=== PATIENT | female | born 1980 ===

== ENCOUNTER 2022-06-13 17:34 | Emergency (ER) | payer OTHER ==
[~2022-06-13] VITALS: Ht 162.6 cm; Wt 85.3 kg
[2022-06-13] MEDS ORDERED: DECONGESTANT (20:11)
[2022-06-13] MEDS ORDERED: AMOX250 (20:11)
[2022-06-13] MEDS ORDERED: TURMERIC ROOT5000 GM (20:23)
[2022-06-13] MEDS ORDERED: Percocet 5-3251 EACH PO (22:42)
== END 2022-06-13 23:36 | disposition home or self-care (01) ==
LOC: ER 17:34
DX: S52.571A Other intraarticular fracture of lower end of right radius, initial encounter for closed fracture (principal); W03.XXXA Other fall on same level due to collision with another person, initial encounter; Y93.21 Activity, ice skating; Z79.899 Other long term (current) drug therapy
CPT/HCPCS: 73090; A9270; J1885

== ENCOUNTER 2022-06-23 08:30 | Day surgery (SDC) | payer OTHER ==
[~2022-06-23] VITALS: Ht 162.6 cm; Wt 85.8 kg
[~2022-06-23 08:30] MED LIST: AMOX250; DECONGESTANT; Percocet 5-3251 EACH PO; TURMERIC ROOT5000 GM
--- NOTE | 2022-06-23 09:29 | NUR ---
06/23/22 0929 GEORGES HODGSON BLOOD WAS SENT TO THE LAB FOR PG TEST SG 1.005
--- NOTE | 2022-06-23 10:31 | NUR ---
06/23/22 1031 CLIF EPSTEIN 0.1MG OF EPI ADDED TO 20MLS OF ROPIVACAINE 0.5% TO CREATE A LOCAL SOLUTION OF ROPIVACAINE 0.5% WITH EPI 1:200,000. 10MLS OF LOCAL DRAWN UP ON STERILE FIELD FOR USE DURING CASE.
--- NOTE | 2022-06-23 13:19 | NUR ---
06/23/22 1319 GEORGES HODGSON DESCRIBES HER PAIN STRONG DISCOMFORT. DOES NOT LIKE THE NUMBNESS PAIN. PERCOCET 5/325MG GIVEN. BP 118/78, 77, 98, 16. EATING AND DRINKING W/O DIFFICULTY.
== END 2022-06-23 13:50 | disposition home or self-care (01) ==
LOC: ORSCSDS 08:30
PROVIDERS: Orthopaedic Surgery
PROC: 0PSH04Z Reposition Right Radius with Internal Fixation Device, Open Approach (ICD-10-PCS; principal; 2022-06-23 10:00)
DX: S52.571A Other intraarticular fracture of lower end of right radius, initial encounter for closed fracture (principal)
CPT/HCPCS: 84703; A9270; C1713; J0690; J1100; J2250; J2405; J2704; J2795; J3010; J7120